=== PATIENT | male | born 1955 | race Two or more races ===

== ENCOUNTER 2019-09-25 10:23 | Inpatient (IN) | payer MEDICARE, OTHER, MEDICAID ==
[~2019-09-25] VITALS: Ht 162.6 cm; Wt 55.8 kg
[2019-09-25] MEDS ORDERED: ONDANSETRON HCL 4MG/2ML INJ IV STA (14:06)
[2019-09-25] MEDS ORDERED: FAMOTIDINE 20MG/2ML VIAL IV STA (14:06)
[2019-09-25] MEDS ORDERED: SODIUM CHLORIDE 0.9% 1,000 ML IV ONE (14:06)
[2019-09-25] MEDS ORDERED: DICYCLOMINE 10 MG/5 ML ORAL SYR PO STA (14:32)
[2019-09-25] MEDS ORDERED: MAGNESIUM/ALUMINUM HYDROXIDE/SIMETHICONE 30ML UDC PO STA (14:32)
[2019-09-25] MEDS ORDERED: VISCOUS LIDOCAINE 2% 15 ML UDC PO STA (14:32)
[2019-09-25 15:30] LABS: HEMOGLOBIN. 18.3 g/dL (14.0-18.0); INR 1.1; MEAN CORPUSCULAR HEMOGLOBIN 30.5 pg (28.0-32.0); MEAN CORPUSCULAR VOLUME 88.3 fL (80.0-94.0); PLATELET 219 x1000/uL (130-400); PROTHROMBIN TIME 10.9 sec (9.6-11.0); RED CELL DISTRIBUTION WIDTH 13.8 % (11.6-14.6)
[2019-09-25 15:31] LABS: CHLORIDE 102 mEq/L (98-107)
[2019-09-25 15:35] LABS: ETHANOL BLOOD < 10 mg/dL
[2019-09-25] MEDS ORDERED: AMLODIPINE 5MG TABLET PO ONE (16:30)
[2019-09-25 17:55] LABS: PLATELET ESTIMATE NORMAL
[2019-09-25 18:09] LABS: CLARITY URINE CLEAR (CLEAR); COLOR URINE YELLOW (YELLOW); KETONES URINE 3+ (NEGATIVE); LEUKOCYTE ESTERASE URINE NEGATIVE (NEGATIVE); NITRITE URINE NEGATIVE (NEGATIVE); OCCULT BLOOD URINE TRACE (NEGATIVE); PH URINE 7.5 (4.5-8.0); PROTEIN URINE 2+ (NEGATIVE); SPECIFIC GRAVITY URINE 1.021 (1.005-1.030); UROBILINOGEN URINE 0.2 E.U./dL (0.2-1.0)
[2019-09-25 18:29] LABS: *AMPHETAMINES SCREEN URINE NEGATIVE (NEGATIVE); *BARBITURATES SCREEN URINE NEGATIVE (NEGATIVE); *BENZODIAZEPINES SCREEN URINE NEGATIVE (NEGATIVE); *COCAINE SCREEN URINE NEGATIVE (NEGATIVE); METHADONE URINE SCREEN NEGATIVE (NEGATIVE); OPIATES URINE SCREEN NEGATIVE (NEGATIVE)
[2019-09-25 18:30] LABS: CANNABINOID URINE SCREEN PRESUMTIVE POSITIVE (NEGATIVE)
[2019-09-25 18:31] LABS: PHENCYCLIDINE URINE SCREEN NEGATIVE (NEGATIVE)
[2019-09-25] MEDS ORDERED: HYDRALAZINE 20MG/ML VIAL IV ONE (20:45)
[2019-09-25 22:50] VITALS: BP 142/84
[2019-09-25] MEDS ORDERED: AMLO5TAB88 MT (23:18)
[2019-09-25] MEDS ORDERED: LISI2.5T47 MT (23:18)
[2019-09-25] MEDS ORDERED: ATOR10TA69 MT (23:18)
[2019-09-25] MEDS ORDERED: LACTULOSE 20G/30ML UDC PO PRN (23:45)
[2019-09-25] MEDS ORDERED: CLONIDINE 0.1MG TABLET PO PRN (23:45)
[2019-09-25] MEDS ORDERED: ONDANSETRON HCL 4MG/2ML INJ IV PRN (23:45)
[2019-09-25] MEDS ORDERED: ACETAMINOPHEN 325MG TABLET PO PRN (23:45)
[2019-09-25] MEDS ORDERED: HYDROCODONE/ACETAMINOPHEN 5/325MG TABLET PO PRN (23:45)
[2019-09-26] VITALS: BP 142/84
[2019-09-26 04:00] VITALS: BP 116/81
[2019-09-26] MEDS: OMEPRAZOLE 20MG CAPSULE EXTENDED RELEASE PO SCH (06:33)
[2019-09-26 06:35] LABS: BASOPHILS % 0.5 % (0.0-2.0); EOSINOPHILS % 0.5 % (0.0-5.0); HEMATOCRIT. 49.6 % (42.0-52.0); HEMOGLOBIN. 16.7 g/dL (14.0-18.0); MEAN CORPUSCULAR HEMOGLOBIN 29.8 pg (28.0-32.0); MEAN CORPUSCULAR VOLUME 88.6 fL (80.0-94.0); MEAN PLATELET VOLUME 7.6 fl (7.4-10.4); MONOCYTES % 11.7 % (2.0-8.0); NEUTROPHILS % 70.3 % (40.0-76.0); PLATELET 226 x1000/uL (130-400); RED CELL DISTRIBUTION WIDTH 13.6 % (11.6-14.6)
[2019-09-26 06:58] LABS: CHLORIDE 106 mEq/L (98-107)
[2019-09-26 07:13] LABS: CREATINE KINASE MB FRACTION 1.5 ng/mL (0.5-3.6)
[2019-09-26 08:00] VITALS: BP 131/65
[2019-09-26] MEDS ORDERED: PNEUMOCOCCAL 23-VAL P-SAC VAC 0.5 ML IM ONE (08:00)
[2019-09-26] MEDS: DOCUSATE SODIUM 100MG CAPSULE PO SCH (09:12)
[2019-09-26] MEDS: ENOXAPARIN 40MG/0.4ML SYR SUBCUT SCH (09:12)
[2019-09-26] MEDS: LISINOPRIL 20MG TABLET PO SCH (09:13)
[2019-09-26] MEDS: AMLODIPINE 5MG TABLET PO SCH ×2 (09:13→20:54)
[2019-09-26] MEDS: ASPIRIN 81MG EC TABLET PO SCH (09:13)
[2019-09-26] MEDS ORDERED: INFLUENZA VIRUS VACCINE(AFLURIA) 0.5ML SYR IM ONE (10:00)
[2019-09-26] MEDS ORDERED: POTASSIUM CHLORIDE 20MEQ TABLET SR PO SCH (12:15)
[2019-09-26 12:32] VITALS: BP 159/96
[2019-09-26 15:12] LABS: CREATINE KINASE MB FRACTION 1.4 ng/mL (0.5-3.6)
[2019-09-26 16:00] VITALS: BP 97/58
[2019-09-26 20:00] VITALS: BP 105/70
[2019-09-26] MEDS ORDERED: ATORVASTATIN CALCIUM 10MG TABLET PO SCH (21:00)
[2019-09-27] VITALS: BP 104/70
[2019-09-27 04:00] VITALS: BP 102/63
[2019-09-27] MEDS: OMEPRAZOLE 20MG CAPSULE EXTENDED RELEASE PO SCH (06:29)
[2019-09-27] MEDS ORDERED: DEXTROSE 50% WATER 50ML SYRINGE IV PRN (07:00)
[2019-09-27] MEDS ORDERED: BLOOD SUGAR DIAGNOSTIC STRIP TEST SCH (07:10)
[2019-09-27] MEDS ORDERED: INSULIN LISPRO 100 UNITS/ML SUBCUT SCH (07:40)
[2019-09-27 08:00] VITALS: BP 111/74
[2019-09-27] MEDS: LISINOPRIL 20MG TABLET PO SCH (09:00)
[2019-09-27] MEDS: AMLODIPINE 5MG TABLET PO SCH (09:17)
[2019-09-27] MEDS: DOCUSATE SODIUM 100MG CAPSULE PO SCH (09:17)
[2019-09-27] MEDS: ASPIRIN 81MG EC TABLET PO SCH (09:17)
[2019-09-27] MEDS: ENOXAPARIN 40MG/0.4ML SYR SUBCUT SCH (09:18)
[2019-09-27 09:23] VITALS: BP 111/74
[2019-09-27] MEDS ORDERED: ASPI-1158 PO (09:24)
[2019-09-27] MEDS ORDERED: LACTULOSE 20G/30ML UDC PO SCH (10:00)
[2019-09-28] MEDS ORDERED: ATORVASTATIN CALCIUM 10MG TABLET PO SCH (09:00)
[2019-09-28] MEDS ORDERED: FAMOTIDINE 20MG TABLET PO SCH (09:00)
[2019-09-28] MEDS ORDERED: LISINOPRIL 2.5MG TABLET PO SCH (09:00)
[2019-09-28] MEDS ORDERED: ASPIRIN 81MG EC TABLET PO SCH (09:00)
[2019-09-28] MEDS ORDERED: AMLODIPINE 5MG TABLET PO SCH (09:00)
== END 2019-09-27 10:50 | disposition home or self-care (01) | DRG 305 ==
LOC: ER 10:23 → 8WST 20:45 → ENRESERV 22:10
PROVIDERS: ADMIT Internal Medicine Geriatric Medicine; ATTEND Internal Medicine Geriatric Medicine
DX: I16.0 Hypertensive urgency (principal); K86.1 Other chronic pancreatitis; I11.9 Hypertensive heart disease without heart failure; G89.4 Chronic pain syndrome; F17.210 Nicotine dependence, cigarettes, uncomplicated; F12.90 Cannabis use, unspecified, uncomplicated; E78.00 Pure hypercholesterolemia, unspecified; K21.9 Gastro-esophageal reflux disease without esophagitis; R11.2 Nausea with vomiting, unspecified; R10.9 Unspecified abdominal pain; M54.5 Low back pain; E78.5 Hyperlipidemia, unspecified; D75.1 Secondary polycythemia; K59.00 Constipation, unspecified; Z87.11 Personal history of peptic ulcer disease
CPT/HCPCS: 36415; 71045; 74176; 80053; 80305; 80320; 81003; 82553; 83036; 84484; 85025; 90686; 90732; 93005; 93306; 96374; 99285; J1650; J2405; J3490; J7030; G0480